=== PATIENT | male | born 1970 | race American Indian/Alaskan Native ===

== ENCOUNTER 2017-09-21 09:30 | Emergency (ER) | payer SELFPAY ==
--- NOTE | 2017-09-21 11:25 | Emergency Department Report ---
ED General Adult HPI - General Chief complaint: Rectal Pain Stated complaint: BLEDDING FROM RECTUM, AND COUGH Time Seen by Provider: 09/21/17 10:43 Source: patient Mode of arrival: Ambulatory Limitations: No Limitations - History of Present Illness Initial comments: Nonproductive cough intermittently, also associated and constipated for several days and was t trying to have a bowel movement when noticed bright red blood on the toilet paper times several days. No syncope no abdominal complaints no chest pain no heavy bleeding just small amounts of bright red blood. No black or bloody stool no family history of cancer and no previous history of this here for evaluation for a nonproductive cough for several days no chest pain no fever no weight loss history of high blood pressure was several days of bright red blood on the toilet paper after being constipated -: Gradual, days(s), unknown Radiation: non-radiation Severity scale (0 -10): 0 Associated Symptoms: denies other symptoms, other (no dizziness syncope). denies: confusion, chest pain, cough, diaphoresis, fever/chills, headaches, loss of appetite, malaise, nausea/vomiting, rash, seizure, syncope - Related Data Previous Rx's Medication Instructions Recorded Last Taken Type Dicyclomine [Bentyl] 20 mg PO QID PRN #15 tablet 09/21/17 Unknown Rx Metoclopramide [Reglan] 10 mg PO TID PRN #15 tab 09/21/17 Unknown Rx Allergies Allergy/AdvReac Type Severity Reaction Status Date / Time No Known Allergies Allergy Unverified 09/21/17 09:33 ED Review of Systems ROS: Stated complaint: BLEDDING FROM RECTUM, AND COUGH Other details as noted in HPI ED Past Medical Hx - Past Medical History Hx Hypertension: Yes - Surgical History Past Surgical History?: No - Social History Smoking Status: Never Smoker Substance Use Type: None - Medications Home Medications: Home Medications Medication Instructions Recorded Confirmed Last Taken Type Dicyclomine [Bentyl] 20 mg PO QID PRN #15 tablet 09/21/17 Unknown Rx Metoclopramide [Reglan] 10 mg PO TID PRN #15 tab 09/21/17 Unknown Rx ED Physical Exam - General Limitations: No Limitations General appearance: alert - Head Head exam: Present: atraumatic, normocephalic - Eye Eye exam: Present: normal appearance, PERRL, EOMI - ENT ENT exam: Present: normal exam, normal orophraynx - Neck Neck exam: Present: normal inspection. Absent: tenderness, meningismus - Respiratory Respiratory exam: Present: normal lung sounds bilaterally. Absent: respiratory distress, wheezes, rales, rhonchi, stridor, chest wall tenderness, accessory muscle use, decreased breath sounds, prolonged expiratory - Cardiovascular Cardiovascular Exam: Present: regular rate, normal rhythm, normal heart sounds, other (capillary refill and pulses equal bilaterally) - GI/Abdominal GI/Abdominal exam: Present: soft. Absent: distended, tenderness, guarding, rebound, rigid, mass, pulsatile mass - Rectal Rectal exam: Present: normal inspection, normal rectal tone, hemorrhoids, normal prostate. Absent: bloody stool, fecal impaction, mass, tenderness - Extremities Exam Extremities exam: Present: normal inspection, normal capillary refill - Back Exam Back exam: Present: normal inspection. Absent: CVA tenderness (R), CVA tenderness (L), muscle spasm, paraspinal tenderness, vertebral tenderness - Neurological Exam Neurological exam: Present: alert, oriented X3, CN II-XII intact. Absent: motor sensory deficit - Skin Skin exam: Present: warm ED Course Vital Signs 09/21/17 09/21/17 09/21/17 09:33 11:45 11:47 Temperature 98.7 F Pulse Rate 78 72 70 Respiratory 18 Rate Blood Pressure 150/73 145/72 146/70 O2 Sat by Pulse 97 97 97 Oximetry ED Medical Decision Making - Lab Data Result diagrams: 09/21/17 11:46 - Radiology Data Radiology results: report reviewed, image reviewed - Medical Decision Making Patient has a nonobstructive pattern on the x-ray he has nothing abnormal on his lung reyna, he did have trace heme positive brown stool, normal vital signs no acute abdomen at this time no active bleeding at this time no rectal masses appreciated normal H&H, x-ray did show some increase gas radiologist thought to be a mild ileus versus enteritis he is not having nausea vomiting he is stable for outpatient follow-up to see GI for further evaluation of bright red blood on the toilet paper, he has been somewhat gassy symptoms likely related to gastroenteritis issue and unable to use a stool for culture ovary placed on Reglan and bentyl to return if worse A she did verbalize understanding of need for outpatient follow-up given the differential including cancer and was aware that he will need outpatient follow-up Critical care attestation.: If time is entered above; I have spent that time in minutes in the direct care of this critically ill patient, excluding procedure time. ED Disposition Clinical Impression: Hematochezia, Gastroenteritis Disposition: TO HOME OR SELFCARE Is pt being admited?: No Condition: Stable Instructions: Gastroenteritis (ED), Rectal Bleeding (ED) Additional Instructions: See the doctor listed return immediately if no alarming symptoms such as worse bleeding or call 911 Prescriptions: Dicyclomine [Bentyl] 20 mg PO QID PRN #15 tablet PRN Reason: Colic Metoclopramide [Reglan] 10 mg PO TID PRN #15 tab PRN Reason: Pain, Moderate (4-6) Referrals: PRIMARY CARE, [Primary Care Provider] - 3-5 Days TOO LANDRY MD [Staff Physician] - 3-5 Days Time of Disposition: 13:31
[2017-09-21 12:09] LABS: Basophils % (Auto) 0.5 % (0.0-1.8); Eosinophils # (Auto) 0.1 K/mm3 (0.0-0.4); Hematocrit 38.7 % (35.5-45.6); Hemoglobin 13.7 gm/dl (11.8-15.2); Lymphocytes # (Auto) 2.1 K/mm3 (1.2-5.4); Lymphocytes % (Auto) 35.3 % (13.4-35.0); Mean Corpuscular HGB Conc 35 % (32-34); Mean Corpuscular Hemoglobin 33 pg (28-32); Mean Corpuscular Volume 93 fl (84-94); Monocytes # (Auto) 0.8 K/mm3 (0.0-0.8); Monocytes % (Auto) 13.6 % (0.0-7.3); Platelet Count 142 K/mm3 (140-440); Red Blood Count 4.14 M/mm3 (3.65-5.03); Red Cell Distribution Width 13.2 % (13.2-15.2)
--- NOTE | 2017-09-21 12:50 | XRay Report ---
FINAL REPORT EXAM: XR ABD SERIES W CXR 1V HISTORY: cough/ constipation TECHNIQUE: Abdomen and frontal chest views PRIORS: None. FINDINGS: There is no visible pulmonary consolidation, pleural effusion, or pneumothorax. Cardiac silhouette size is normal without vascular congestion. No visible acute displaced fracture in the regional skeleton.Small calcified granuloma lateral left mid lung. Pneumoperitoneum: None. Abnormal fluid levels: None. Visceromegaly: None visible. Mass: None visible. Abnormal calcification: None. Intestinal distention: None. Slight prominence of nonspecific gas in central small-bowel loops and left upper quadrant:. Intestinal obstructive pattern: None. Stool volume: Slight prominence in the ascending, transverse, and descending colon IMPRESSION: Scattered prominence of small and large bowel gas may reflect paralytic ileus and/or enteritis Prominent proximal colonic stool may reflect mild constipation
[2017-09-21 13:47] VITALS: BP 132/68
== END 2017-09-21 13:45 | disposition home or self-care (01) ==
LOC: ED 09:30
DX: K52.9 Noninfective gastroenteritis and colitis, unspecified (principal); K92.1 Melena; I10 Essential (primary) hypertension
CPT/HCPCS: 36415; 74022; 82271; 85025

== ENCOUNTER 2017-09-29 16:20 | Inpatient (IN) | payer OTHER ==
--- NOTE | 2017-09-29 19:14 | Emergency Department Report ---
ED Abdominal Pain HPI - General Chief Complaint: Medical Clearance Stated Complaint: CONSTIPATION Time Seen by Provider: 09/29/17 19:01 Source: patient Mode of arrival: Ambulatory Limitations: No Limitations - History of Present Illness Initial Comments: 47-year-old male past medical history hypertension presents with complaint of one week of constipation and vague abdominal discomfort and slight weakness. Patient is awake alert and oriented 3 denies chest pain shortness of breath fever chills nausea or vomiting. Denies dysuria or hematuria or increased urinary frequency. Denies any smoking or drug use. Patient is fully lucid. Accompanied by friends at bedside. States he was seen at another hospital in [place] for vague abdominal discomfort week ago. Patient states he has been told in the past that he has had a kidney issue but is unable to clarify exactly what MD Complaint: abdominal pain Onset/Timin -: week(s) Location: periumbilical Severity scale (0 -10): 0 Improves With: nothing Associated Symptoms: constipation (patient states he has felt constipated over the last several days) - Related Data Previous Rx's Medication Instructions Recorded Last Taken Type Dicyclomine [Bentyl] 20 mg PO QID PRN #15 tablet 09/21/17 Unknown Rx Metoclopramide [Reglan] 10 mg PO TID PRN #15 tab 09/21/17 Unknown Rx Allergies Allergy/AdvReac Type Severity Reaction Status Date / Time No Known Allergies Allergy Unverified 09/21/17 09:33 ED Review of Systems ROS: Stated complaint: CONSTIPATION Other details as noted in HPI Constitutional: denies: chills, fever Eyes: denies: eye pain, eye discharge, vision change ENT: denies: ear pain, throat pain Respiratory: denies: cough, shortness of breath, wheezing Cardiovascular: denies: chest pain, palpitations Endocrine: no symptoms reported Gastrointestinal: denies: abdominal pain, nausea, diarrhea Genitourinary: denies: urgency, dysuria Musculoskeletal: denies: back pain, joint swelling, arthralgia Skin: denies: rash, lesions Neurological: denies: headache, weakness, paresthesias Psychiatric: denies: anxiety, depression Hematological/Lymphatic: denies: easy bleeding, easy bruising ED Past Medical Hx - Past Medical History Previous Medical History?: Yes Hx Hypertension: Yes Additional medical history: heart murmure - Social History Smoking Status: Never Smoker - Medications Home Medications: Home Medications Medication Instructions Recorded Confirmed Last Taken Type Dicyclomine [Bentyl] 20 mg PO QID PRN #15 tablet 09/21/17 Unknown Rx Metoclopramide [Reglan] 10 mg PO TID PRN #15 tab 09/21/17 Unknown Rx ED Physical Exam - General Limitations: No Limitations General appearance: alert, in no apparent distress - Head Head exam: Present: atraumatic, normocephalic - Eye Eye exam: Present: normal appearance - ENT ENT exam: Present: mucous membranes moist - Neck Neck exam: Present: normal inspection - Respiratory Respiratory exam: Present: normal lung sounds bilaterally. Absent: respiratory distress - Cardiovascular Cardiovascular Exam: Present: regular rate, normal rhythm. Absent: systolic murmur, diastolic murmur, rubs, gallop - GI/Abdominal GI/Abdominal exam: Present: soft (abdomen is soft nontender nondistended 4 quadrants), normal bowel sounds - Rectal Rectal exam: Present: deferred - Extremities Exam Extremities exam: Present: normal inspection - Back Exam Back exam: Present: normal inspection - Neurological Exam Neurological exam: Present: alert, oriented X3 - Psychiatric Psychiatric exam: Present: normal affect, normal mood - Skin Skin exam: Present: warm, dry, intact, normal color. Absent: rash ED Course Vital Signs 09/29/17 09/29/17 09/29/17 16:45 20:44 22:02 Temperature 99.1 F 98.8 F Pulse Rate 77 75 Respiratory 16 18 16 Rate Blood Pressure 128/77 Blood Pressure 107/65 [Right] O2 Sat by Pulse 98 99 99 Oximetry ED Medical Decision Making - Lab Data Result diagrams: 09/29/17 19:26 09/29/17 19:26 - Medical Decision Making A/P: Elevated creatinine, acute kidney injury, constipation 1-unknown baseline creatinine. Creatinine is 2.2 with GFR 38 today. I discussed this with Dr. Joseph, patient to be admitted for HPI. IV fluid resuscitation. 2-CT shows possible mild distal sigmoid inflammation but no other abnormalities 3-lab work is otherwise unremarkable 4-discussed case with hospitalist for admission for elevated creatinine/RAMAKRISHNA. Critical care attestation.: If time is entered above; I have spent that time in minutes in the direct care of this critically ill patient, excluding procedure time. ED Disposition Clinical Impression: RAMAKRISHNA (acute kidney injury) Disposition: DC-09 OP ADMIT IP TO THIS HOSP Is pt being admited?: Yes Does the pt Need Aspirin: No Condition: Stable Referrals: PRIMARY CARE,MD [Primary Care Provider] - 3-5 Days
[2017-09-29 19:37] LABS: Basophils # (Auto) 0.1 K/mm3 (0.0-0.1); Basophils % (Auto) 0.7 % (0.0-1.8); Eosinophils # (Auto) 0.2 K/mm3 (0.0-0.4); Eosinophils % (Auto) 3.3 % (0.0-4.3); Hematocrit 39.5 % (35.5-45.6); Hemoglobin 13.7 gm/dl (11.8-15.2); Lymphocytes # (Auto) 2.2 K/mm3 (1.2-5.4); Lymphocytes % (Auto) 29.3 % (13.4-35.0); Mean Corpuscular HGB Conc 35 % (32-34); Mean Corpuscular Hemoglobin 33 pg (28-32); Mean Corpuscular Volume 94 fl (84-94); Monocytes # (Auto) 0.9 K/mm3 (0.0-0.8); Monocytes % (Auto) 12.2 % (0.0-7.3); Platelet Count 204 K/mm3 (140-440); Red Blood Count 4.21 M/mm3 (3.65-5.03); Red Cell Distribution Width 13.1 % (13.2-15.2)
[2017-09-29 19:45] LABS: Calcium 10.1 mg/dL (8.4-10.2)
[2017-09-29] MEDS ORDERED: NACL 0.9% 1000 ML 1,000 ML IV ONE ×2 (19:51→19:52)
[2017-09-29 19:59] LABS: Alanine Aminotransferase 17 units/L (7-56); Albumin 4.3 g/dL (3.9-5); Lipase 157 units/L (13-60)
[2017-09-29 20:10] LABS: Bilirubin,Direct < 0.2 mg/dL (0-0.2)
[2017-09-29 20:35] LABS: Bilirubin,Urine NEG (Negative); Blood,Urine MOD (Negative); Color,Urine Yellow (Yellow); Urobilinogen,Urine < 2.0 mg/dL (<2.0)
--- NOTE | 2017-09-29 22:04 | Cat Scan Report ---
FINAL REPORT PROCEDURE: CT abdomen and pelvis without contrast. TECHNIQUE: Computerized axial tomography of the abdomen and pelvis was performed without intravenous contrast. This study is performed without intravascular contrast material and its sensitivity for abdominal and pelvic pathology, including neoplasms, inflammation, abscess, free fluid, thrombosis, arterial dissection and infarction, is reduced compared with a contrast enhanced study. HISTORY: Abdominal pain. COMPARISON: No prior studies are available for comparison. FINDINGS: The lung bases are clear. There are no pleural effusions. The heart size is normal. The liver, pancreas and spleen are grossly normal. The gallbladder is present. There is no biliary dilatation. The adrenal glands are not enlarged. Both kidneys appear normal in size and configuration. The abdominal aorta has a normal caliber. There is no retroperitoneal adenopathy. There may be some mild infiltration of the fat adjacent to the rectum and distal sigmoid colon. This could indicate an inflammatory process. This is not a definite finding however. Clinical correlation is suggested. There are no signs of an abscess. There is no significant diverticular disease. A normal appendix is visible. The bladder, seminal vesicles and prostate appear normal. The regional skeleton appears intact. IMPRESSION: Question possible mild inflammation of the rectum and distal sigmoid colon. Clinical correlation recommended. Otherwise normal studies of the abdomen and pelvis.
[2017-09-29] MEDS ORDERED: TYLENOL PO PRN (22:35)
[2017-09-30] MEDS: NACL 0.9% 1000 ML 1,000 ML IV SCH ×3 (00:58→21:39)
[2017-09-30] MEDS ORDERED: ZOFRAN IV PRN (01:09)
[2017-09-30] MEDS ORDERED: DULCOLAX PR PRN (01:10)
[2017-09-30] MEDS: ROCEPHIN/NS 1 GM/50 ML 1 GM/50 ML BAG IV SCH ×2 (01:26→10:47)
--- NOTE | 2017-09-30 02:35 | History and Physical Report ---
CHIEF COMPLAINT: Constipation. OTHER COMPLAINT: Need for medical clearance and abdominal pain. HISTORY OF PRESENT ILLNESS: The patient is a 47-year-old male who was complaining of abdominal pain. He is constipated for some days and denied history of fever or chills. The patient denied history of nausea or vomiting, and also denied history of urinary symptoms and presented to the Emergency Room. There is no history of chest pain or shortness breath. PAST MEDICAL HISTORY: Pertinent for hypertension and heart murmur. Also, the patient has a history of questionable renal insufficiency. FAMILY HISTORY: Noncontributory. SOCIAL HISTORY: The patient does not smoke, does not drink, and does not use illicit drugs. MEDICATIONS: The patient is on Bentyl 20 mg by mouth 4 times daily and Reglan 10 mg by mouth 3 times daily. ALLERGIES: There are no known drug allergies. REVIEW OF SYSTEMS: CONSTITUTIONAL: There is no fever, no chills, no diaphoresis. HEENT: There is no headache or sore throat. CARDIOVASCULAR SYSTEM: There is no chest pain or orthopnea. RESPIRATORY SYSTEM: There is no shortness of breath or cough. GASTROINTESTINAL SYSTEM: Abdominal pain is present. Nausea is present, and constipation is present. NEUROLOGICAL SYSTEM: There is no numbness, no dizziness, no altered mental status. MUSCULOSKELETAL SYSTEM: There is no joint pain or swelling. DERMATOLOGICAL SYSTEM: There is no skin rash or itching. GENITOURINARY SYSTEM: There is no dysuria, hematuria, or flank pain. Rest of system review is normal. PHYSICAL EXAMINATION: GENERAL: At the time of exam, the patient was found to be alert, oriented x 3, and not in acute distress. VITAL SIGNS: Shows temperature of 99.4 degrees Fahrenheit, pulse of 74, respiration 20, blood pressure 152/67, O2 sat of 97% on room air. HEENT: Shows pupils to be equal, round, reactive to light and accommodation. Extraocular muscles are intact. NECK: Supple with no JVD or carotid bruit. CARDIOVASCULAR SYSTEM: Showed normal first and second heart sounds with no gallops or murmurs. RESPIRATORY SYSTEM: Show good air entry on both sides of the lungs with no abnormal breath sounds. GASTROINTESTINAL SYSTEM: Show abdomen to be full, soft, nontender with no organomegaly or rigidity. NEUROLOGIC: Shows no focal deficit. MUSCULOSKELETAL SYSTEM: Show no joint swelling or tenderness. DERMATOLOGIC SYSTEM: Show no skin rash. GENITOURINARY SYSTEM: Showing no costovertebral angle tenderness. PERTINENT LABORATORY AND IMAGING STUDIES: The patient has CBC done with normal white count, normal hemoglobin, and normal hematocrit, with CBC differential showing high monocyte count of 12.2, otherwise unremarkable. The patient's chemistry showed low potassium level of 3.4 and low chloride level of 95.2, with elevated BUN of 33, an elevated creatinine of 2.2. The patient's total creatinine kinase is high with a value of 407. Lipase level is within a value of 157. The patient's urinalysis was unremarkable. IMAGING STUDIES: The patient has CT of the abdomen and pelvis done that shows questionable possible mild inflammation of the rectum and distal sigmoid colon and the radiologist said to correlate clinically. DIAGNOSES: 1. Acute kidney injury. 2. Abdominal pain. 3. Questionable inflammation of the rectum and sigmoid colon. CARE OF PLAN: 1. The patient will be admitted to medical and surgical floor. 2. The patient will be on intravenous normal saline at 125 mL an hour. 3. The patient will be on intravenous Rocephin 1 g daily for treatment of possible inflammation in the rectum and sigmoid colon. 4. The patient will be on Tylenol 650 mg by mouth for fever and headache, will be on hydrochlorothiazide 12.5 mg 1 by mouth daily for blood pressure treatment and the patient remembers his home medications. 5. The patient will be on intravenous Zofran 4 mg every 6 hours as needed for nausea and vomiting. 6. The patient will have nephrology consult with Dr. Pereira in the morning for evaluation and treatment of acute kidney injury. 7. The patient will be on low sodium diet, and will have basic metabolic panel done this morning, 09/30/2017. 8. The patient will be on Dulcolax suppository one per rectum daily as needed for constipation. JOB# [id number] OCN/NTS MTDD
--- NOTE | 2017-09-30 09:40 | Consultation ---
History of Present Illness - Reason for Consult Consult date: 09/30/17 acute renal failure - History of Present Illness patient was admitted last night for worsening abdominal pain and constipation, CT scan showed possible inflammation of the distal sigmoid, blood work showed abnormal kidney function and renal consult was requested. patient remains to have constipation when seen, denies h/o CKD. Past History Past Medical History: hypertension Medications and Allergies Allergies Allergy/AdvReac Type Severity Reaction Status Date / Time No Known Allergies Allergy Unverified 09/21/17 09:33 Home Medications Medication Instructions Recorded Confirmed Last Taken Type Atenolol/Chlorthalidone 50 mg PO QDAY 09/30/17 09/30/17 1 Day Ago History ~09/29/17 50/25 Norvasc 10 mg PO QDAY MDD htn 09/30/17 09/30/17 1 Day Ago History ~09/29/17 10 Active Meds: Active Medications Acetaminophen (Tylenol) 650 mg PO Q4H PRN PRN Reason: Fever >101 Bisacodyl (Dulcolax) 10 mg [place] QDAY PRN PRN Reason: Constipation Sodium Chloride (Nacl 0.9% 1000 Ml) 1,000 mls @ 125 mls/hr IV DIRECT MAC Last Admin: 09/30/17 00:58 Dose: 125 mls/hr Ceftriaxone Sodium (Rocephin/Ns 1 Gm/50 Ml) 1 gm in 50 mls @ 100 mls/hr IV Q24HR MAC; Protocol Last Admin: 09/30/17 01:26 Dose: 100 mls/hr Ondansetron HCl (Zofran) 4 mg IV Q6H PRN PRN Reason: Nausea And Vomiting Review of Systems All systems: negative (constipation) Exam - Vital Signs Vital signs: Vital Signs Temp Pulse Resp BP Pulse Ox 99.1 F 77 16 128/77 98 09/29/17 16:45 09/29/17 16:45 09/29/17 16:45 09/29/17 16:45 09/29/17 16:45 - General Appearance General appearance: well-developed, well-nourished, appears stated age EENT: ATNC, PERRL, mucous membranes moist Neck: Present: neck supple Respiratory: Clear to Ascultation Heart: regular, S1S2 Gastrointestinal: Present: normoactive bowel sounds. Absent: tenderness, distended Integumentary: no rash, warm and dry Neurologic: no focal deficit, no asterixis, alert and oriented x3 Musculoskeletal: Present: other (no edema in BLE) Psychiatric: mood/affect appropriate, cooperative Results - Lab Results 09/29/17 19:26 09/30/17 07:52 Most recent lab results Calcium 9.0 mg/dL (8.4-10.2) 09/30/17 07:52 Assessment and Plan acute renal failure - possible prerenal azotemia from low PO intake and HCTZ - baseline Cr is unknown - Cr is improving with IVF - will d/c HCTZ - no hydronephrosis on CT abd/pelvis - will check urine lytes and protein Abdominal pain constipation - CT showed inflammation in distal sigmoid - started on rocephin HTN - d/c HCTZ as above - will adjust regiemn as needed Thank you for allowing to participate in Mr Garcia's care. Zach Duval MD cell [phone]
[2017-09-30] MEDS ORDERED: HCTZ PO SCH (10:00)
[2017-09-30] MEDS ORDERED: K-DUR PO ONE (10:48)
[2017-09-30] MEDS ORDERED: LEVAQUIN 750MG/150ML 750 MG/150 ML BAG IV SCH (11:00)
[2017-09-30 14:16] LABS: Creatinine,Urine 172.9 mg/dL (0.1-20.0); Protein/Creatinine Ratio,Urine 0.36
[2017-09-30 14:16] LABS: Creatinine,Urine 166.2 mg/dL (0.1-20.0)
--- NOTE | 2017-09-30 15:22 | Progress Note ---
Assessment and Plan /Abdominal pain likely due to colitis - CT showed inflammation in distal sigmoid - started on rocephin in the ER will change to levquin and flagyl - if no improvement considering consult GI /Elevated d/dimer - will order VQ scan, /RAMAKRISHNA - vasomotor nephropathy vs prerenal azotemia from low PO intake and HCTZ - Cr is improving with IVF - HCTZ stopped now - nephrology following, monitor renal function /Hypokalemia, will replace /HTN - started on metoprolol and norvasc - stopped HcTz /DVT Px, lovenox Brief History: 47 y/o male presented to ER worsening abdominal pain and constipation, CT scan showed possible inflammation of the distal sigmoid, serum chemistry showed elevated creatinine. Subjective Date of service: 09/30/17 Interval history: Pt seen and examined states abdominal pain improved Had BM yesterday Objective - Constitutional Vitals: Vital Signs - 12hr 09/30/17 06:21 Temperature 99.5 F Pulse Rate 76 Respiratory 18 Rate Blood Pressure 122/80 [Right] O2 Sat by Pulse 95 Oximetry General appearance: Present: no acute distress, well-nourished - EENT Eyes: PERRL, EOM intact ENT: hearing intact, clear oral mucosa Ears: bilateral: normal - Neck Neck: supple, normal ROM - Respiratory Respiratory effort: normal Respiratory: bilateral: CTA - Cardiovascular Rhythm: regular Heart Sounds: Present: S1 & S2. Absent: gallop, rub Extremities: pulses intact, No edema, normal color, Full ROM - Gastrointestinal General gastrointestinal: Present: soft, non-tender, non-distended, normal bowel sounds - Integumentary Integumentary: clear, warm, dry - Musculoskeletal Musculoskeletal: 1, strength equal bilaterally - Neurologic Neurologic: moves all extremities - Psychiatric Psychiatric: memory intact, appropriate mood/affect, intact judgment & insight - Labs CBC & Chem 7: 09/29/17 19:26 09/30/17 07:52 Labs: Abnormal lab results 09/29/17 09/29/17 09/29/17 Range/Units 19:26 19:26 19:26 MCH 33 H (28-32) pg MCHC 35 H (32-34) % RDW 13.1 L (13.2-15.2) % [place] % (Auto) 12.2 H (0.0-7.3) % [place] # 0.9 H (0.0-0.8) K/mm3 Potassium 3.4 L (3.6-5.0) mmol/L Chloride 95.2 L (98-107) mmol/L BUN 33 H (9-20) mg/dL Creatinine 2.2 H (0.8-1.5) mg/dL Glucose 106 H (75-100) mg/dL Total Creatine Kinase 407 H (55-170) units/L Lipase 157 H (13-60) units/L Urine Creatinine (0.1-20.0) mg/dL Urine Total Protein (5-11.8) mg/dL 09/30/17 09/30/17 09/30/17 Range/Units 07:52 13:00 13:30 MCH (28-32) pg MCHC (32-34) % RDW (13.2-15.2) % [place] % (Auto) (0.0-7.3) % [place] # (0.0-0.8) K/mm3 Potassium 3.1 L (3.6-5.0) mmol/L Chloride (98-107) mmol/L BUN 24 H (9-20) mg/dL Creatinine 1.7 H (0.8-1.5) mg/dL Glucose (75-100) mg/dL Total Creatine Kinase (55-170) units/L Lipase (13-60) units/L Urine Creatinine 172.9 H 166.2 H (0.1-20.0) mg/dL Urine Total Protein 63 H (5-11.8) mg/dL - Imaging and cardiology CT scan - abdomen: report reviewed
[2017-09-30] MEDS: FLAGYL 500 MG/100 ML 500 MG/100 ML BAG IV SCH (16:44)
[2017-09-30] MEDS: ASPIRIN PO SCH (19:09)
[2017-09-30] MEDS: NORVASC PO SCH (19:09)
[2017-09-30] MEDS ORDERED: LOPRESSOR PO SCH (19:15)
[2017-09-30] MEDS ORDERED: LOVENOX SUB-Q ONE ×2 (20:00→22:00)
[2017-09-30] MEDS ORDERED: LOVENOX SUB-Q SCH (22:00)
[2017-10-01] MEDS: FLAGYL 500 MG/100 ML 500 MG/100 ML BAG IV SCH ×4 (00:03→21:49)
[2017-10-01] MEDS: NACL 0.9% 1000 ML 1,000 ML IV SCH (06:00)
[2017-10-01 06:52] LABS: Basophils % (Auto) 0.5 % (0.0-1.8); Eosinophils # (Auto) 0.2 K/mm3 (0.0-0.4); Lymphocytes # (Auto) 1.6 K/mm3 (1.2-5.4); Lymphocytes % (Auto) 24.1 % (13.4-35.0); Mean Corpuscular HGB Conc 36 % (32-34); Mean Corpuscular Hemoglobin 33 pg (28-32); Mean Corpuscular Volume 92 fl (84-94); Monocytes # (Auto) 0.7 K/mm3 (0.0-0.8); Monocytes % (Auto) 10.3 % (0.0-7.3); Platelet Count 183 K/mm3 (140-440); Red Blood Count 4.14 M/mm3 (3.65-5.03)
[2017-10-01 07:03] LABS: Hematocrit 37.9 % (35.5-45.6); Hemoglobin 13.6 gm/dl (11.8-15.2)
[2017-10-01 08:11] LABS: BUN/Creatinine Ratio 11; Blood Urea Nitrogen 19 mg/dL (9-20); Calcium 8.9 mg/dL (8.4-10.2); Hemolysis Index 1
--- NOTE | 2017-10-01 08:47 | Progress Note ---
Assessment and Plan acute renal failure - possible prerenal azotemia from low PO intake and HCTZ - stable Cr since yesterday, baseline Cr is unknown, possible CKD from HTN - will decrease IVF to 50 cc/h - no hydronephrosis on CT abd/pelvis Abdominal pain - CT showed inflammation in distal sigmoid - started on rocephin, now on flagyl and levofloxacin HTN - d/c HCTZ as above - will decrease IVF as above and switch metoprolol to Labetalol 300 mg BID Thank you for allowing to participate in Mr Garcia's care. Zach Duval MD cell [phone] Subjective Date of service: 10/01/17 Principal diagnosis: acute renal failure Interval history: remains to have watery stool Objective - Vital Signs Vital signs: Vital Signs - 12hr 09/30/17 10/01/17 20:46 05:44 Temperature 98.5 F 99.5 F Pulse Rate 68 72 Respiratory 24 20 Rate Blood Pressure 136/61 145/61 O2 Sat by Pulse 94 98 Oximetry - General Appearance General appearance: well-developed, well-nourished, appears stated age EENT: ATNC, PERRL, mucous membranes moist Neck: no JVD, no carotid bruit Respiratory: Present: Clear to Ascultation. Absent: Rales, Ronchi Cardiology: regular, S1S2 Gastrointestinal: normoactive bowel sounds, no tenderness, no distended Integumentary: no rash, warm and dry Neurologic: no focal deficit, no asterixis, alert and oriented x3 Musculoskeletal: other (no edema in BLE) Psychiatric: mood/affect appropriate, cooperative - Lab 10/01/17 05:41 10/01/17 05:41 Most recent lab results Calcium 8.9 mg/dL (8.4-10.2) 10/01/17 05:41 Urine Creatinine 166.2 mg/dL (0.1-20.0) H 09/30/17 13:30 Urine Sodium 121 mmol/L 09/30/17 13:30 Urine Total Protein 63 mg/dL (5-11.8) H 09/30/17 13:00
[2017-10-01] MEDS: NORMODYNE PO SCH ×2 (10:33→21:52)
[2017-10-01] MEDS: ASPIRIN PO SCH (10:34)
[2017-10-01] MEDS: NORVASC PO SCH (10:34)
--- NOTE | 2017-10-01 11:39 | Nuclear Medicine Report ---
LUNG SCAN, VENTILATION AND PERFUSION: History: Elevated d-dimer, shortness of breath, chest pain. Technique: 5mci of Tc99m MAA was infused for the perfusion images. 15mci XE 133 gas was inhaled for the ventilatory images. No radiographic comparison is provided. Findings: This examination is just presented to me for interpretation. Inhalation of Xenon gas demonstrates a normal distribution of the activity throughout both lungs. The wash out phases show no focal retention of activity. After injection of Technetium 99m macroaggregated albumin gamma camera imaging of the lungs in multiple projections demonstrates normal pulmonary contours with a homogeneous distribution of activity. No focal areas of perfusion deficiency are identified. IMPRESSION: Low probability for pulmonary embolus.
[2017-10-01] MEDS: LEVAQUIN 750MG/150ML 750 MG/150 ML BAG IV SCH (16:33)
--- NOTE | 2017-10-01 20:29 | Progress Note ---
Assessment and Plan - RAMAKRISHNA due to ATN IV hydration recheck Cr - Colitis iv antibiotic - HTN Controlled on oral antihypertensives - Hypokalemia corrected - Elevated D-dimer with low probability VQ scan Subjective Date of service: 10/01/17 Principal diagnosis: acute renal failure Interval history: c/o no chest pain Shortness of breath or pND Objective - Constitutional Vitals: Vital Signs - 12hr 10/01/17 10/01/17 10/01/17 10:25 10:33 10:34 Temperature 99.1 F Pulse Rate 72 Respiratory 18 Rate Blood Pressure 131/63 131/63 131/63 O2 Sat by Pulse 94 Oximetry 10/01/17 10/01/17 13:48 17:09 Temperature 98.3 F 98.8 F Pulse Rate 76 82 Respiratory 20 16 Rate Blood Pressure 112/49 143/64 O2 Sat by Pulse 95 96 Oximetry General appearance: Present: no acute distress, well-nourished - EENT Eyes: PERRL, EOM intact Ears: bilateral: normal - Neck Neck: supple, normal ROM - Respiratory Respiratory effort: normal Respiratory: bilateral: CTA - Cardiovascular Rhythm: regular Heart Sounds: Present: S1 & S2. Absent: gallop, rub Extremities: pulses intact, No edema, normal color, Full ROM - Gastrointestinal General gastrointestinal: Present: soft, non-tender, non-distended, normal bowel sounds - Integumentary Integumentary: clear, warm, dry - Musculoskeletal Musculoskeletal: 1, strength equal bilaterally - Neurologic Neurologic: moves all extremities - Psychiatric Psychiatric: memory intact, appropriate mood/affect, intact judgment & insight - Labs CBC & Chem 7: 10/01/17 05:41 10/01/17 05:41 Labs: Abnormal lab results 09/30/17 10/01/17 10/01/17 Range/Units 19:48 05:41 05:41 MCH 33 H (28-32) pg MCHC 36 H (32-34) % RDW 13.0 L (13.2-15.2) % [place] % (Auto) 10.3 H (0.0-7.3) % D-Dimer 361.55 H (0-234) ng/mlDDU Potassium 3.2 L (3.6-5.0) mmol/L Creatinine 1.7 H (0.8-1.5) mg/dL
[2017-10-02 06:31] LABS: Basophils % (Auto) 0.4 % (0.0-1.8); Eosinophils # (Auto) 0.1 K/mm3 (0.0-0.4); Hematocrit 32.7 % (35.5-45.6); Hemoglobin 11.7 gm/dl (11.8-15.2); Lymphocytes # (Auto) 1.6 K/mm3 (1.2-5.4); Lymphocytes % (Auto) 29.3 % (13.4-35.0); Mean Corpuscular HGB Conc 36 % (32-34); Mean Corpuscular Hemoglobin 33 pg (28-32); Mean Corpuscular Volume 91 fl (84-94); Monocytes # (Auto) 0.6 K/mm3 (0.0-0.8); Monocytes % (Auto) 11.2 % (0.0-7.3); Platelet Count 175 K/mm3 (140-440); Red Blood Count 3.61 M/mm3 (3.65-5.03); Red Cell Distribution Width 12.9 % (13.2-15.2)
[2017-10-02 07:41] LABS: Calcium 8.6 mg/dL (8.4-10.2)
[2017-10-02] MEDS: FLAGYL 500 MG/100 ML 500 MG/100 ML BAG IV SCH ×3 (07:56→22:37)
--- NOTE | 2017-10-02 08:03 | Progress Note ---
Assessment and Plan - RAMAKRISHNA due to ATN IV hydration recheck Cr - Colitis iv antibiotic - HTN Controlled on oral antihypertensives - Hypokalemia corrected. Check magnesium level - Elevated D-dimer with low probability VQ scan - Prophylaxis with SCDs Subjective Date of service: 10/02/17 Principal diagnosis: acute renal failure Interval history: c/o no chest pain Shortness of breath or PND Objective - Exam Narrative Exam: Constitutional: Well-nourished well-developed. In no distress Head: Normocephalic atraumatic Eyes: Pupils are equal round and reactive to light Nose: No enlarged turbinates, no septal deviation. Mouth: Moist mucous membranes. Neck: Supple no thyromegaly. No bruit. No JVD Heart: Regular rate and rhythm, S1-S2 abnormal. No rubs murmurs or gallop Lungs: Clear to auscultation bilaterally no rales or rhonchi Abdomen: Soft, nontender. Bowel sound are present. Extremities: No edema no cyanosis and no clubbing. Neuro: Alert oriented Oriented x3. No focal sensory or motor deficit. Skin: No rashes no hyperemic spots Psychiatry: Euthymic. Calm. - Constitutional Vitals: Vital Signs - 12hr 10/01/17 10/01/17 10/01/17 21:02 21:52 22:00 Temperature 99.9 F H Pulse Rate 83 83 Respiratory 28 H 20 Rate Blood Pressure 131/61 131/71 O2 Sat by Pulse 97 Oximetry 10/01/17 10/02/17 23:36 05:58 Temperature 99.6 F 98.6 F Pulse Rate 75 76 Respiratory 16 16 Rate Blood Pressure 127/54 131/58 O2 Sat by Pulse 97 97 Oximetry General appearance: Present: no acute distress, well-nourished - EENT Eyes: PERRL, EOM intact ENT: hearing intact, clear oral mucosa Ears: bilateral: normal - Neck Neck: supple, normal ROM - Respiratory Respiratory effort: normal Respiratory: bilateral: CTA - Breasts Breasts: normal - Cardiovascular Rhythm: regular Heart Sounds: Present: S1 & S2. Absent: gallop, rub Extremities: pulses intact, No edema, normal color, Full ROM - Gastrointestinal General gastrointestinal: Present: soft, non-tender, non-distended, normal bowel sounds - Genitourinary Male genitourinary: normal - Integumentary Integumentary: clear, warm, dry - Musculoskeletal Musculoskeletal: 1, strength equal bilaterally - Neurologic Neurologic: moves all extremities - Psychiatric Psychiatric: memory intact, appropriate mood/affect, intact judgment & insight - Labs CBC & Chem 7: 10/02/17 04:56 10/02/17 04:56 Labs: Abnormal lab results 10/01/17 10/02/17 10/02/17 Range/Units 05:41 04:56 04:56 RBC 3.61 L (3.65-5.03) M/mm3 Hgb 11.7 L (11.8-15.2) gm/dl Hct 32.7 L (35.5-45.6) % MCH 33 H (28-32) pg MCHC 36 H (32-34) % RDW 12.9 L (13.2-15.2) % [place] % (Auto) 11.2 H (0.0-7.3) % Potassium 3.2 L 2.8 L* (3.6-5.0) mmol/L Creatinine 1.7 H 1.7 H (0.8-1.5) mg/dL
[2017-10-02] MEDS: KCL 10MEQ/100ML 10 MEQ/100 ML BAG IV SCH ×4 (09:46→18:57)
[2017-10-02] MEDS: NORVASC PO SCH (09:48)
[2017-10-02] MEDS: THALITONE PO SCH (09:49)
[2017-10-02] MEDS: ASPIRIN PO SCH (09:49)
[2017-10-02] MEDS: LEVAQUIN 750MG/150ML 750 MG/150 ML BAG IV SCH (09:50)
[2017-10-02] MEDS: TENORMIN PO SCH (09:50)
[2017-10-02] MEDS ORDERED: ATENOLOL PO SCH (10:00)
[2017-10-02] MEDS ORDERED: NON-FORMULARY (Norvasc 10 MG) PO SCH (10:00)
[2017-10-02] MEDS ORDERED: CHLORTHALIDONE PO SCH (10:00)
--- NOTE | 2017-10-02 12:18 | Progress Note ---
Assessment and Plan Acute Renal Failure possibly Prerenal Azotemia from HCTZ on CKD from Hypertension - Renal function reviewed. Serum creatinine stable at 1.7 today. Baseline serum creatinine unknown. - On IVF of 50 ml/hr - No hydronephrosis on CT abd/pelvis - Renally dose medications - Obtain daily weights - Monitor I/O's - Continue monitor renal function closely Hypokalemia: -In repletion with IV KCL 10 meq x 4 doses -BMP in a.m Abdominal pain - CT showed inflammation in distal sigmoid - On IV Rocephin/ Flagyl and Levofloxacin HTN -On Amlodipine 10 mg po daily, Chlorthalidone 25 mg daily and Atenolol 50 mg daily -Monitor blood pressures and adjust regimen as needed Subjective Date of service: 10/02/17 Principal diagnosis: acute renal failure Interval history: Patient seen sitting up in bed. Reviewed renal labs with patient. No family at bedside. Objective - Vital Signs Vital signs: Vital Signs - 12hr 10/02/17 10/02/17 10/02/17 05:58 09:48 09:50 Temperature 98.6 F Pulse Rate 76 76 76 Respiratory 16 Rate Blood Pressure 131/58 O2 Sat by Pulse 97 Oximetry 10/02/17 11:52 Temperature 98.8 F Pulse Rate 76 Respiratory 20 Rate Blood Pressure 132/63 O2 Sat by Pulse 95 Oximetry - General Appearance General appearance: well-developed, appears stated age EENT: ATNC, PERRL, hearing intact, vision intact Neck: no JVD, supple Respiratory: Present: Decreased Breath Sounds Cardiology: regular, S1S2 Gastrointestinal: normoactive bowel sounds Integumentary: warm and dry Neurologic: alert and oriented x3 Musculoskeletal: other (No edema) - Lab 10/02/17 04:56 10/02/17 04:56 Most recent lab results Calcium 8.6 mg/dL (8.4-10.2) 10/02/17 04:56 Urine Creatinine 166.2 mg/dL (0.1-20.0) H 09/30/17 13:30 Urine Sodium 121 mmol/L 09/30/17 13:30 Urine Total Protein 63 mg/dL (5-11.8) H 09/30/17 13:00
[2017-10-03 06:51] LABS: Basophils % (Auto) 0.5 % (0.0-1.8); Eosinophils # (Auto) 0.2 K/mm3 (0.0-0.4); Eosinophils % (Auto) 2.9 % (0.0-4.3); Hematocrit 35.4 % (35.5-45.6); Hemoglobin 12.3 gm/dl (11.8-15.2); Lymphocytes # (Auto) 1.5 K/mm3 (1.2-5.4); Lymphocytes % (Auto) 27.7 % (13.4-35.0); Mean Corpuscular HGB Conc 35 % (32-34); Mean Corpuscular Hemoglobin 32 pg (28-32); Mean Corpuscular Volume 92 fl (84-94); Monocytes # (Auto) 0.6 K/mm3 (0.0-0.8); Platelet Count 187 K/mm3 (140-440); Red Blood Count 3.85 M/mm3 (3.65-5.03); Red Cell Distribution Width 12.8 % (13.2-15.2)
[2017-10-03 07:04] LABS: Calcium 8.7 mg/dL (8.4-10.2)
[2017-10-03] MEDS: FLAGYL PO SCH ×2 (08:31→15:00)
[2017-10-03] MEDS: TENORMIN PO SCH (09:13)
[2017-10-03] MEDS: ASPIRIN PO SCH (09:14)
[2017-10-03] MEDS: THALITONE PO SCH ×2 (09:14→11:00)
[2017-10-03] MEDS: NORVASC PO SCH (09:14)
[2017-10-03] MEDS ORDERED: LEVAQUIN PO SCH (10:00)
--- NOTE | 2017-10-03 10:12 | Progress Note ---
Assessment and Plan Acute Renal Failure possibly prerenal Azotemia from HCTZ on CKD from Hypertension: - Renal function reviewed, SCr level was 1.6 today, yesterday's SCr level was 1.7 - Exact SCr baseline unknown - Continue on 0.9% NS infusion at gentle rate of 50 ml/hr - Hold chlorthalidone for now, no signs of volume overload/pt denies shortness of breath - CT Abd/Pelvis - no hydronephrosis - Renally dose medications - Obtain daily weights - Cote Catheter: No - Renal plan d/w Dr Yost - Continue supportive therapy Hypokalemia: - Replete - Magnesium level stable today Abdominal pain: Constipation: - CT showed inflammation in distal sigmoid - On rocephin, Flagyl, and levofloxacin - Pt reports unable to have bowel movement, states he had very small bowel movement with streaks of bright red blood noted - consider GI consult Essential Hypertension: -On Amlodipine 10 mg orally once a day and Atenolol 50 mg daily -Adjust medications as needed Subjective Date of service: 10/03/17 Principal diagnosis: acute renal failure Interval history: Pt reports he still has constipation with intermittent bright red blood noted. Pt denies shortness of breath, states tolerating diet ok overall, no nausea or vomiting. No family at bedside Objective - Vital Signs Vital signs: Vital Signs - 12hr 10/02/17 10/03/17 22:36 05:18 Temperature 97.3 F L 97.8 F Pulse Rate 82 80 Respiratory 24 16 Rate Blood Pressure 162/72 125/53 O2 Sat by Pulse 97 96 Oximetry - General Appearance General appearance: well-developed (no acute distress) EENT: ATNC Neck: no JVD Respiratory: Present: Clear to Ascultation Cardiology: regular, S1S2 Gastrointestinal: normoactive bowel sounds, no tenderness Integumentary: warm and dry Neurologic: alert and oriented x3 Musculoskeletal: other (no edema to both lower extremities) Psychiatric: mood/affect appropriate, cooperative - Lab 10/03/17 05:54 10/03/17 05:54 Most recent lab results Calcium 8.7 mg/dL (8.4-10.2) 10/03/17 05:54 Phosphorus 2.60 mg/dL (2.5-4.5) 10/03/17 05:54 Magnesium 1.90 mg/dL (1.7-2.3) 10/03/17 05:54 Urine Creatinine 166.2 mg/dL (0.1-20.0) H 09/30/17 13:30 Urine Sodium 121 mmol/L 09/30/17 13:30 Urine Total Protein 63 mg/dL (5-11.8) H 09/30/17 13:00
[2017-10-03] MEDS ORDERED: K-DUR PO ONE ×2 (10:22→12:46)
--- NOTE | 2017-10-03 10:29 | Progress Note ---
Assessment and Plan - RAMAKRISHNA due to ATN IV hydration monitor Cr - Colitis Presently on IV antibiotics - HTN Controlled on oral antihypertensives - Hypokalemia improving, will replete - Elevated D-dimer with low probability VQ scan -DVT Prophylaxis with SCDs Subjective Date of service: 10/03/17 Principal diagnosis: acute renal failure Objective - Constitutional Vitals: Vital Signs - 12hr 10/02/17 10/03/17 22:36 05:18 Temperature 97.3 F L 97.8 F Pulse Rate 82 80 Respiratory 24 16 Rate Blood Pressure 162/72 125/53 O2 Sat by Pulse 97 96 Oximetry General appearance: Present: no acute distress, well-nourished - EENT Eyes: PERRL, EOM intact ENT: hearing intact, clear oral mucosa Ears: bilateral: normal - Neck Neck: supple, normal ROM - Respiratory Respiratory effort: normal Respiratory: bilateral: CTA - Breasts Breasts: deferred - Cardiovascular Rhythm: regular Heart Sounds: Present: S1 & S2. Absent: gallop, rub Extremities: pulses intact, No edema, normal color, Full ROM - Gastrointestinal General gastrointestinal: Present: soft, non-tender, non-distended, normal bowel sounds Rectal Exam: deferred - Genitourinary Male genitourinary: deferred - Integumentary Integumentary: clear, warm, dry - Musculoskeletal Musculoskeletal: strength equal bilaterally - Neurologic Neurologic: moves all extremities - Labs CBC & Chem 7: 10/03/17 05:54 10/03/17 05:54 Labs: Abnormal lab results 10/03/17 10/03/17 Range/Units 05:54 05:54 Hct 35.4 L (35.5-45.6) % MCHC 35 H (32-34) % RDW 12.8 L (13.2-15.2) % [place] % (Auto) 12.0 H (0.0-7.3) % Potassium 3.4 L D (3.6-5.0) mmol/L Creatinine 1.6 H (0.8-1.5) mg/dL
--- NOTE | 2017-10-03 13:08 | Discharge Summary ---
Providers - Providers Date of Admission: 09/29/17 22:27 Date of discharge: 10/03/17 Attending physician: TILA DUFFY 09/30/17 06:31 Consult to Physician [CONS] Routine Comment: Consulting Provider: AUGIE BERRY Physician Instructions: Reason For Exam: RAMAKRISHNA Primary care physician: [facility]IL[facility] Hospitalization Condition: Stable Hospital course: 47-year-old male past medical history hypertension presents with complaint of one week of constipation and vague abdominal discomfort and slight weakness. Patient is awake alert and oriented 3 denies chest pain shortness of breath fever chills nausea or vomiting. Denies dysuria or hematuria or increased urinary frequency. Denies any smoking or drug use. Patient is fully lucid. Accompanied by friends at bedside. States he was seen at another hospital in [place] for vague abdominal discomfort week ago. Patient states he has been told in the past that he has had a kidney issue but is unable to clarify exactly what Disposition: DC-01 TO HOME OR SELFCARE Core Measure Documentation - Palliative Care Palliative Care/ Comfort Measures: Not Applicable - Core Measures Any of the following diagnoses?: none Exam - Physical Exam Narrative exam: Constitutional: Well-nourished well-developed. In no distress Head: Normocephalic atraumatic Eyes: Pupils are equal round and reactive to light Nose: No enlarged turbinates, no septal deviation. Mouth: Moist mucous membranes. Neck: Supple no thyromegaly. No bruit. No JVD Heart: Regular rate and rhythm, S1-S2 abnormal. No rubs murmurs or gallop Lungs: Clear to auscultation bilaterally no rales or rhonchi Abdomen: Soft, nontender. Bowel sound are present. Extremities: No edema no cyanosis and no clubbing. Neuro: Alert oriented Oriented x3. No focal sensory or motor deficit. Skin: No rashes no hyperemic spots Psychiatry: Euthymic. Calm. - Constitutional Vitals: Temp Pulse Resp BP Pulse Ox 97.8 F 80 16 125/53 96 10/03/17 05:18 10/03/17 05:18 10/03/17 05:18 10/03/17 05:18 10/03/17 05:18 Plan Activity: advance as tolerated Diet: regular Follow up with: WADE TATE MD [Primary Care Provider] - 3-5 Days PANCHO VIERA MD [Staff Physician] - 7 Days Prescriptions: Atenolol [Tenormin] 50 mg PO QDAY #30 tablet AtorvaSTATin [Lipitor] 40 mg PO QHS #30 tablet Norvasc 10 mg PO QDAY #30 MDD htn
[2017-10-03] MEDS ORDERED: MIRALAX 3350 PO SCH (16:00)
[2017-10-03 17:47] VITALS: BP 137/65
== END 2017-10-03 18:40 | disposition home or self-care (01) | DRG 391 ==
LOC: ED 16:20 → 3A 22:27
PROVIDERS: ADMIT Internal Medicine; ATTEND Family Medicine
DX: K52.9 Noninfective gastroenteritis and colitis, unspecified (principal); N17.0 Acute kidney failure with tubular necrosis; K59.00 Constipation, unspecified; E87.6 Hypokalemia; N18.9 Chronic kidney disease, unspecified; I12.9 Hypertensive chronic kidney disease with stage 1 through stage 4 chronic kidney disease, or unspecified chronic kidney disease; Z79.899 Other long term (current) drug therapy
CPT/HCPCS: 36415; 74176; 78582; 80048; 80074; 81001; 82140; 82550; 82570; 83690; 83735; 84100; 84156; 84300; 84484; 85025; 85379; 87040; 93005; 93010; 96360; A9270-GY; A9540; A9558; J0696; J1650; J1956; J3480; J7030

== ENCOUNTER 2017-10-31 05:30 | Emergency (ER) | payer SELFPAY ==
[2017-10-31 07:01] LABS: Basophils % (Auto) 0.4 % (0.0-1.8); Eosinophils # (Auto) 0.1 K/mm3 (0.0-0.4); Eosinophils % (Auto) 1.1 % (0.0-4.3); Hematocrit 36.2 % (35.5-45.6); Hemoglobin 12.5 gm/dl (11.8-15.2); Lymphocytes # (Auto) 2.6 K/mm3 (1.2-5.4); Mean Corpuscular HGB Conc 35 % (32-34); Mean Corpuscular Hemoglobin 31 pg (28-32); Mean Corpuscular Volume 90 fl (84-94); Monocytes # (Auto) 1.2 K/mm3 (0.0-0.8); Monocytes % (Auto) 12.1 % (0.0-7.3); Platelet Count 177 K/mm3 (140-440); Red Cell Distribution Width 13.2 % (13.2-15.2)
[2017-10-31 07:27] LABS: Bacteria,Urine 1+ /HPF (Negative); Bilirubin,Urine NEG (Negative); Blood,Urine LG (Negative); Color,Urine Yellow (Yellow); Granular Casts,Urine 1 /LPF; Mucus,Urine FEW /HPF; Urobilinogen,Urine < 2.0 mg/dL (<2.0)
[2017-10-31 07:33] LABS: Albumin 3.7 g/dL (3.9-5)
[2017-10-31 07:34] LABS: Protein,Urine >500 mg/dL (Negative)
--- NOTE | 2017-10-31 08:14 | Cat Scan Report ---
CT ABDOMEN PELVIS WITHOUT CONTRAST: HISTORY: abdominal pain. COMPARISON: 09/29/17. TECHNIQUE: Helical CT in 1.25mm intervals without IV contrast. Sagittal and coronal reconstructions. FINDINGS: Lung bases: Normal. Liver: Normal. Biliary system: Normal. Pancreas: Normal. Spleen: Normal. Kidneys/ureters/bladder: Normal. Adrenal glands: Normal. Aorta: Normal. Intestines: No oral or IV contrast was administered which limits this exam. There appears to be increased circumferential thickening of the distal rectosigmoid colon and rectum on today's exam. It is unclear if this represents an inflammatory process or a neoplastic process. The remainder of the GI system is unremarkable. Appendix: Normal. Ascites: There is small fluid in the retroperitoneum. No peritoneal ascites is identified. Adenopathy: There are multiple borderline to mildly enlarged lymph nodes in the retroperitoneum and perirectal areas. One of the largest lymph nodes measure 1.6 cm in greatest dimension in the left para-aortic chain. Musculoskeletal: Normal. IMPRESSION: Increased thickening of the distal colon and rectum since 09/29/17 exam. Relatively stable appearance of the retroperitoneal and perirectal lymph nodes. Although a nonspecific inflammatory process of the rectum could be considered, a neoplastic process cannot be excluded. Please correlate with the patient's clinical presentation and history.
[2017-10-31 09:30] VITALS: BP 135/66
--- NOTE | 2017-10-31 11:54 | Emergency Department Report ---
ED General Adult HPI - General Chief complaint: Abdominal Pain Stated complaint: CONSTIPATION/BLOODY STOOL Time Seen by Provider: 10/31/17 11:29 Source: patient, EMS Mode of arrival: Ambulatory Limitations: No Limitations - History of Present Illness Initial comments: Patient complains of diffuse abdominal pain that has been present for the last 3 months along with constipation. Patient also states that he has a lot of pain on defecation at the rectal area along with blood in the stool. Patient states that he did take some magnesium citrate about 4 days ago and had a significant bowel movement. Patient has no other complaints. -: Gradual Location: abdomen Radiation: non-radiation Severity scale (0 -10): 5 Quality: dull Consistency: constant Improves with: none Worsens with: none Associated Symptoms: denies other symptoms Treatments Prior to Arrival: none - Related Data Previous Rx's Medication Instructions Recorded Last Taken Type Atenolol [Tenormin] 50 mg PO QDAY #30 tablet 10/03/17 Unknown Rx AtorvaSTATin [Lipitor] 40 mg PO QHS #30 tablet 10/03/17 Unknown Rx Norvasc 10 mg PO QDAY #30 MDD htn 10/03/17 Unknown Rx Amoxicillin/Potassium Clav 1 each PO BID 14 Days tablet 10/31/17 Unknown Rx [Augmentin 875-125 Tablet] traMADol [Ultram] 50 mg PO Q6HR PRN #20 tablet 10/31/17 Unknown Rx Allergies Allergy/AdvReac Type Severity Reaction Status Date / Time Chocolate Allergy Unknown Unknown Uncoded 09/30/17 15:09 ED Review of Systems ROS: Stated complaint: CONSTIPATION/BLOODY STOOL Other details as noted in HPI Constitutional: denies: chills, fever Eyes: denies: eye pain, eye discharge, vision change ENT: denies: ear pain, throat pain Respiratory: denies: cough, shortness of breath, wheezing Cardiovascular: denies: chest pain, palpitations Endocrine: no symptoms reported Gastrointestinal: abdominal pain. denies: nausea, diarrhea Genitourinary: denies: urgency, dysuria Musculoskeletal: denies: back pain, joint swelling, arthralgia Skin: denies: rash, lesions Neurological: denies: headache, weakness, paresthesias Psychiatric: denies: anxiety, depression Hematological/Lymphatic: denies: easy bleeding, easy bruising ED Past Medical Hx - Past Medical History Previous Medical History?: Yes Hx Hypertension: Yes Hx Congestive Heart Failure: No Hx Diabetes: No Hx Sickle Cell Disease: No Hx Asthma: No Hx COPD: No Hx HIV: No Additional medical history: heart murmure - Surgical History Past Surgical History?: No - Social History Smoking Status: Former Smoker Substance Use Type: None - Medications Home Medications: Home Medications Medication Instructions Recorded Confirmed Last Taken Type Atenolol [Tenormin] 50 mg PO QDAY #30 tablet 10/03/17 Unknown Rx AtorvaSTATin [Lipitor] 40 mg PO QHS #30 tablet 10/03/17 Unknown Rx Norvasc 10 mg PO QDAY #30 MDD htn 10/03/17 Unknown Rx Amoxicillin/Potassium Clav 1 each PO BID 14 Days tablet 10/31/17 Unknown Rx [Augmentin 875-125 Tablet] traMADol [Ultram] 50 mg PO Q6HR PRN #20 tablet 10/31/17 Unknown Rx ED Physical Exam - General Limitations: No Limitations General appearance: alert, in no apparent distress - Head Head exam: Present: atraumatic, normocephalic - Eye Eye exam: Present: normal appearance - ENT ENT exam: Present: mucous membranes moist - Neck Neck exam: Present: normal inspection - Respiratory Respiratory exam: Present: normal lung sounds bilaterally. Absent: respiratory distress, wheezes, rales - Cardiovascular Cardiovascular Exam: Present: regular rate, normal rhythm. Absent: systolic murmur, diastolic murmur, rubs, gallop - GI/Abdominal GI/Abdominal exam: Present: soft, normal bowel sounds. Absent: distended, tenderness - Rectal Rectal exam: Present: deferred - Extremities Exam Extremities exam: Present: normal inspection - Back Exam Back exam: Present: normal inspection - Neurological Exam Neurological exam: Present: alert, oriented X3, CN II-XII intact. Absent: motor sensory deficit - Psychiatric Psychiatric exam: Present: normal affect, normal mood - Skin Skin exam: Present: warm, dry, intact, normal color. Absent: rash ED Course Vital Signs 10/31/17 10/31/17 05:47 09:17 Temperature 99.8 F H 98.9 F Pulse Rate 81 84 Respiratory 20 18 Rate Blood Pressure 153/71 135/66 O2 Sat by Pulse 99 97 Oximetry ED Medical Decision Making - Lab Data Result diagrams: 10/31/17 06:45 10/31/17 06:45 - Medical Decision Making Discussed CT results with patient MR concern for either a neoplasm or infection or autoimmune disease. Discussed with patient the need to follow up with her GI Drs. outpatient and at this point patient tells me he does not have insurance. I informed the patient that we will be giving him free clinics to follow-up with. Critical care attestation.: If time is entered above; I have spent that time in minutes in the direct care of this critically ill patient, excluding procedure time. ED Disposition Clinical Impression: Abdominal pain, Colitis Disposition: TO HOME OR SELFCARE Is pt being admited?: No Does the pt Need Aspirin: No Condition: Stable Instructions: Abdominal Pain (ED) Additional Instructions: return if worse Prescriptions: Amoxicillin/Potassium Clav [Augmentin 875-125 Tablet] 1 each PO BID 14 Days tablet traMADol [Ultram] 50 mg PO Q6HR PRN #20 tablet PRN Reason: Pain Referrals: PRIMARY CARE, [Primary Care Provider] - 3-5 Days Time of Disposition: 11:52
== END 2017-10-31 12:05 | disposition home or self-care (01) ==
LOC: ED 05:30
DX: K52.9 Noninfective gastroenteritis and colitis, unspecified (principal); Z91.09 Other allergy status, other than to drugs and biological substances
CPT/HCPCS: 36415; 74176; 80053; 81001; 85025

== ENCOUNTER 2017-12-28 06:21 | Emergency (ER) | payer SELFPAY ==
[2017-12-28 09:41] LABS: Basophils % (Auto) 0.6 % (0.0-1.8); Eosinophils # (Auto) 0.1 K/mm3 (0.0-0.4); Eosinophils % (Auto) 2.2 % (0.0-4.3); Hematocrit 37.2 % (35.5-45.6); Hemoglobin 12.4 gm/dl (11.8-15.2); Lymphocytes # (Auto) 1.5 K/mm3 (1.2-5.4); Lymphocytes % (Auto) 30.9 % (13.4-35.0); Mean Corpuscular HGB Conc 33 % (32-34); Mean Corpuscular Hemoglobin 29 pg (28-32); Mean Corpuscular Volume 87 fl (84-94); Monocytes # (Auto) 0.5 K/mm3 (0.0-0.8); Monocytes % (Auto) 9.9 % (0.0-7.3); Platelet Count 152 K/mm3 (140-440); Red Blood Count 4.26 M/mm3 (3.65-5.03); Red Cell Distribution Width 15.6 % (13.2-15.2)
--- NOTE | 2017-12-28 09:48 | Cat Scan Report ---
FINAL REPORT EXAM: CT HEAD/BRAIN WO CON HISTORY: dizzy near syncope TECHNIQUE: CT of the Head without IV contrast. PRIORS: None currently available. FINDINGS: There is no evidence for acute ischemia. There is no hemorrhage. There is no midline shift. There is no hydrocephalus. There is no mass. Age appropriate de la garza-white matter attenuation is noted. There is no calvarial fracture. The temporal bones demonstrate aerated mastoid air cells. The middle ears appear unremarkable. Paranasal sinuses are unremarkable. Globes are intact. IMPRESSION: No acute intracranial findings.
[2017-12-28 09:50] LABS: INR 0.97 (0.87-1.13)
[2017-12-28 10:04] LABS: Alanine Aminotransferase 11 units/L (7-56); Alanine Aminotransferase 12 units/L (7-56); Albumin 3.8 g/dL (3.9-5); BUN/Creatinine Ratio 13; Blood Urea Nitrogen 20 mg/dL (9-20); Calcium 9.2 mg/dL (8.4-10.2); Hemolysis Index 3
[2017-12-28 10:20] LABS: Bilirubin,Direct < 0.2 mg/dL (0-0.2)
--- NOTE | 2017-12-28 10:30 | Emergency Department Report ---
ED General Adult HPI - General Chief complaint: High BP Stated complaint: HIGH BP Time Seen by Provider: 12/28/17 10:29 Source: patient Mode of arrival: Stretcher Limitations: No Limitations - History of Present Illness Initial comments: 47-year-old male states he awoke from sleep abruptly. He felt very anxious. States he had a night terror like this once before. He had run out of this medicine for hypertension. Therefore he called EMS. According to the triage note he felt dizzy. However, he denied dizziness vertigo headache or any neurological changes to me. He was resting comfortably when I saw him with no complaints in no distress. He denies ever having chest pain or shortness of breath during this episode. He stated that he didn't think that he was probably panicking. He stated that the paramedics found that he had a blood pressure 200 systolic when they measured it. The patient is a poor historian. He can tell me he does have a history of a heart murmur. He thinks he had an echo in the past but there is none on record here. He does have a history of anal insufficiency. He is not in followed by a bargain table clerk. He does not have a primary care provider. According to his discharge summary here in September: 47-year-old male past medical history hypertension presents with complaint of one week of constipation and vague abdominal discomfort and slight weakness. Patient is awake alert and oriented 3 denies chest pain shortness of breath fever chills nausea or vomiting. Denies dysuria or hematuria or increased urinary frequency. Denies any smoking or drug use. Patient is fully lucid. Accompanied by friends at bedside. States he was seen at another hospital in [place] for vague abdominal discomfort week ago. Patient states he has been told in the past that he has had a kidney issue but is unable to clarify exactly what on admission patient had a CT scan of the abdomen and pelvis that showed inflamed sigmoid colon and rectum. Patient was, just on IV Levaquin and Flagyl. IV hydration was commenced because of acute on chronic kidney disease that was predominantly prerenal. Nephrology consult was obtained. Hydrochlorothiazide was held. Symptoms improved. Patient was discharged to follow primary care physician and to continue to follow up with her vaudeville actor in 3-5 days and 7 days respectively. Disposition: TO HOME OR SELFCARE Core Measure Documentation - Palliative Care Palliative Care/ Comfort Measures: Not Applicable - Core Measures Any of the following diagnoses?: none Exam - Physical Exam Narrative exam: Constitutional: Well-nourished well-developed. In no distress Head: Normocephalic atraumatic Eyes: Pupils are equal round and reactive to light Nose: No enlarged turbinates, no septal deviation. Mouth: Moist mucous membranes. Neck: Supple no thyromegaly. No bruit. No JVD Heart: Regular rate and rhythm, S1-S2 abnormal. No rubs murmurs or gallop Lungs: Clear to auscultation bilaterally no rales or rhonchi Abdomen: Soft, nontender. Bowel sound are present. Extremities: No edema no cyanosis and no clubbing. Neuro: Alert oriented Oriented x3. No focal sensory or motor deficit. Skin: No rashes no hyperemic spots Psychiatry: Euthymic. Calm. -: Sudden (awoke from sleep) Radiation: other (denies pain) Improves with: none Worsens with: none Associated Symptoms: denies other symptoms Treatments Prior to Arrival: none - Related Data Previous Rx's Medication Instructions Recorded Last Taken Type Atenolol [Tenormin] 50 mg PO QDAY #30 tablet 10/03/17 Unknown Rx AtorvaSTATin [Lipitor] 40 mg PO QHS #30 tablet 10/03/17 Unknown Rx Norvasc 10 mg PO QDAY #30 MDD htn 10/03/17 Unknown Rx Amoxicillin/Potassium Clav 1 each PO BID 14 Days tablet 10/31/17 Unknown Rx [Augmentin 875-125 Tablet] traMADol [Ultram] 50 mg PO Q6HR PRN #20 tablet 10/31/17 Unknown Rx Carvedilol 6.25 mg PO BID #60 tablet 12/28/17 Unknown Rx hydroCHLOROthiazide [Hctz] 12.5 mg PO QDAY #30 capsule 12/28/17 Unknown Rx Allergies Allergy/AdvReac Type Severity Reaction Status Date / Time Chocolate Allergy Unknown Unknown Uncoded 09/30/17 15:09 ED Review of Systems ROS: Stated complaint: HIGH BP Other details as noted in HPI Constitutional: denies: chills, fever Eyes: denies: eye pain, eye discharge, vision change ENT: denies: ear pain, throat pain Respiratory: denies: cough, shortness of breath, wheezing Cardiovascular: denies: chest pain, palpitations Endocrine: no symptoms reported Gastrointestinal: denies: abdominal pain, nausea, diarrhea Genitourinary: denies: urgency, dysuria Musculoskeletal: denies: back pain, joint swelling, arthralgia Skin: denies: rash, lesions Neurological: denies: headache, weakness, paresthesias Psychiatric: as per HPI. denies: anxiety, depression Hematological/Lymphatic: denies: easy bleeding, easy bruising ED Past Medical Hx - Past Medical History Previous Medical History?: Yes Hx Hypertension: Yes Hx Congestive Heart Failure: No Hx Diabetes: No Hx Sickle Cell Disease: No Hx Asthma: No Hx COPD: No Hx HIV: No Additional medical history: heart murmur - Surgical History Past Surgical History?: No - Social History Smoking Status: Never Smoker Substance Use Type: None - Medications Home Medications: Home Medications Medication Instructions Recorded Confirmed Last Taken Type Atenolol [Tenormin] 50 mg PO QDAY #30 tablet 10/03/17 Unknown Rx AtorvaSTATin [Lipitor] 40 mg PO QHS #30 tablet 10/03/17 Unknown Rx Norvasc 10 mg PO QDAY #30 MDD htn 10/03/17 Unknown Rx Amoxicillin/Potassium Clav 1 each PO BID 14 Days tablet 10/31/17 Unknown Rx [Augmentin 875-125 Tablet] traMADol [Ultram] 50 mg PO Q6HR PRN #20 tablet 10/31/17 Unknown Rx Carvedilol 6.25 mg PO BID #60 tablet 12/28/17 Unknown Rx hydroCHLOROthiazide [Hctz] 12.5 mg PO QDAY #30 capsule 12/28/17 Unknown Rx ED Physical Exam - General Limitations: No Limitations General appearance: alert, in no apparent distress - Head Head exam: Present: atraumatic, normocephalic - Eye Eye exam: Present: normal appearance. Absent: scleral icterus - ENT ENT exam: Present: mucous membranes moist - Neck Neck exam: Present: normal inspection. Absent: tenderness, meningismus - Respiratory Respiratory exam: Present: normal lung sounds bilaterally. Absent: respiratory distress - Cardiovascular Cardiovascular Exam: Present: regular rate, normal rhythm, diastolic murmur ( patient has 2 to 3/6 diastolic murmur). Absent: systolic murmur, rubs, gallop - GI/Abdominal GI/Abdominal exam: Present: soft, normal bowel sounds. Absent: distended, tenderness, guarding, rebound, rigid - Rectal Rectal exam: Present: deferred - Extremities Exam Extremities exam: Present: normal inspection - Back Exam Back exam: Present: normal inspection. Absent: CVA tenderness (R), CVA tenderness (L) - Neurological Exam Neurological exam: Present: alert, oriented X3, CN II-XII intact. Absent: motor sensory deficit - Psychiatric Psychiatric exam: Present: normal affect, normal mood - Skin Skin exam: Present: warm, dry, intact, normal color. Absent: rash ED Course Vital Signs 12/28/17 12/28/17 12/28/17 08:20 08:30 08:33 Pulse Rate 74 Respiratory 12 19 16 Rate Blood Pressure 156/65 O2 Sat by Pulse 98 94 99 Oximetry 12/28/17 12/28/17 12/28/17 08:46 09:00 09:16 Pulse Rate 56 L 65 59 L Respiratory 16 15 14 Rate Blood Pressure 122/55 130/48 117/55 O2 Sat by Pulse 96 94 97 Oximetry 12/28/17 12/28/17 12/28/17 09:48 10:00 10:16 Pulse Rate Respiratory Rate Blood Pressure 117/55 152/65 158/52 O2 Sat by Pulse 98 99 99 Oximetry 12/28/17 12/28/17 12/28/17 10:30 10:46 11:00 Pulse Rate 56 L Respiratory 21 Rate Blood Pressure 130/53 150/48 138/53 O2 Sat by Pulse 99 97 86 Oximetry 12/28/17 12/28/17 12/28/17 11:16 11:30 11:46 Pulse Rate 50 L 69 72 Respiratory 14 14 14 Rate Blood Pressure 150/51 139/74 137/61 O2 Sat by Pulse 99 92 97 Oximetry - Reevaluation(s) Reevaluation #1: Patient has a normal blood pressure measured times several here in the emergency department. His chest x-ray does show cardiomegaly. He has elevated proBNP. He probably has some diastolic dysfunction. His pulse oximetry is normal. I discussed the case with Dr. Ted Sr., The bargain table clerk on-call. He stated that if the patient is stable which she certainly is I could put him on carvedilol and a mild diuretic. He stated they can do an echocardiogram in the office. Patient will be referred to [facility]. 12/28/17 12:50 ED Medical Decision Making - Lab Data Result diagrams: 12/28/17 09:27 12/28/17 09:27 Laboratory Results - last 24 hr 12/28/17 12/28/17 12/28/17 09:27 09:27 09:27 WBC 4.9 RBC 4.26 Hgb 12.4 Hct 37.2 MCV 87 MCH 29 MCHC 33 RDW 15.6 H Plt Count 152 Lymph % (Auto) 30.9 Frontier % (Auto) 9.9 H Eos % (Auto) 2.2 Baso % (Auto) 0.6 Lymph # 1.5 Frontier # 0.5 Eos # 0.1 Baso # 0.0 Seg Neutrophils % 56.4 Seg Neutrophils # 2.8 PT INR Sodium 144 Potassium 3.9 Chloride 103.9 Carbon Dioxide 28 Anion Gap 16 BUN 20 Creatinine 1.5 Estimated GFR > 60 BUN/Creatinine Ratio 13 Glucose 95 Calcium 9.2 Total Bilirubin 0.30 0.30 Direct Bilirubin < 0.2 Indirect Bilirubin 0.1 AST 15 15 ALT 11 12 Alkaline Phosphatase 55 55 NT-Pro-B Natriuret Pep Total Protein 7.7 7.7 Albumin 3.8 L 3.8 L Albumin/Globulin Ratio 1.0 1.0 12/28/17 12/28/17 09:27 09:27 WBC RBC Hgb Hct MCV MCH MCHC RDW Plt Count Lymph % (Auto) Frontier % (Auto) Eos % (Auto) Baso % (Auto) Lymph # Frontier # Eos # Baso # Seg Neutrophils % Seg Neutrophils # PT 13.4 INR 0.97 Sodium Potassium Chloride Carbon Dioxide Anion Gap BUN Creatinine Estimated GFR BUN/Creatinine Ratio Glucose Calcium Total Bilirubin Direct Bilirubin Indirect Bilirubin AST ALT Alkaline Phosphatase NT-Pro-B Natriuret Pep 1068 H Total Protein Albumin Albumin/Globulin Ratio - EKG Data -: EKG Interpreted by Mi EKG shows normal: sinus rhythm Rate: bradycardia - EKG Data Interpretation: other (somewhat short TN interval. LVH likely left atrial abnormality.) - Radiology Data Radiology results: report reviewed IMPRESSION: No acute intracranial findings. Critical care attestation.: If time is entered above; I have spent that time in minutes in the direct care of this critically ill patient, excluding procedure time. ED Disposition Clinical Impression: Night terror, Diastolic murmur, Diastolic dysfunction Cardiomyopathy Qualifiers: Cardiomyopathy type: unspecified Qualified Code(s): I42.9 - Cardiomyopathy, unspecified Disposition: DC-01 TO HOME OR SELFCARE Is pt being admited?: No Does the pt Need Aspirin: No Condition: Stable Instructions: Heart Failure (ED) Additional Instructions: It is essential that you see the bargain table clerk. See your referral. An echo test is required to determine what your murmur is due to. Return to the emergency department any chest pain or breathing difficulty. Otherwise follow- up with Dr. Jean's group [facility]. Prescriptions: Carvedilol 6.25 mg PO BID #60 tablet hydroCHLOROthiazide [Hctz] 12.5 mg PO QDAY #30 capsule Referrals: PRIMARY CARE, [Primary Care Provider] - 3-5 Days Time of Disposition: 12:54
[2017-12-28 10:49] LABS: Bilirubin,Urine NEG (Negative); Blood,Urine MOD (Negative); Color,Urine Yellow (Yellow); Urobilinogen,Urine < 2.0 mg/dL (<2.0); WBC,Urine < 1.0 /HPF (0.0-6.0)
[2017-12-28 10:54] LABS: Protein,Urine >500 mg/dL (Negative)
[2017-12-28 11:14] LABS: Amphetamine Screen,Urine PRESUMPTIVE NEGATIVE; Benzodiazepines Screen,Urine PRESUMPTIVE NEGATIVE; Cannabinoid Screen,Urine PRESUMPTIVE NEGATIVE; Cocaine Screen,Urine PRESUMPTIVE NEGATIVE; Methadone Screen,Urine PRESUMPTIVE NEGATIVE; Opiate Screen,Urine PRESUMPTIVE NEGATIVE
--- NOTE | 2017-12-28 11:23 | XRay Report ---
FINAL REPORT EXAM: XR CHEST 1V AP HISTORY: hypertension TECHNIQUE: Frontal chest x-ray. PRIORS: Chest x-ray September 21, 2017. FINDINGS: Stable mild cardiomegaly There is no effusion. There is no pneumothorax. There is no consolidation. There are no suspicious osseous lesions. IMPRESSION: No acute cardiopulmonary findings.
[2017-12-28 13:06] VITALS: BP 124/66
== END 2017-12-28 13:06 | disposition home or self-care (01) ==
LOC: ED 06:21
DX: I42.9 Cardiomyopathy, unspecified (principal); I50.30 Unspecified diastolic (congestive) heart failure; I38 Endocarditis, valve unspecified; F51.4 Sleep terrors [night terrors]; I10 Essential (primary) hypertension; Z79.899 Other long term (current) drug therapy; Z91.018 Allergy to other foods
CPT/HCPCS: 36415; 70450; 71045; 80053; 80074; 80307; 81001; 83880; 85025; 85610; 93005; 93010

== ENCOUNTER 2019-04-16 17:10 | Emergency (ER) | payer SELFPAY ==
[2019-04-16 17:35] VITALS: BP 168/73
--- NOTE | 2019-04-16 18:27 | Emergency Department Report ---
Chief Complaint: Fever Stated Complaint: COLD SWEATS/FEVER - HPI History of Present Illness: pt is 49 y/o male with pmhx of htn presents to er for fever/chills, cough, nasal congestion. vs stable. - ROS Review of Systems: neg except for fever, chills, uri sxs. - Exam Vital Signs: Vital Signs 04/16/19 17:18 Temperature 100.3 F H Pulse Rate 98 H Respiratory 20 Rate Blood Pressure 168/73 O2 Sat by Pulse 96 Oximetry Physical Exam: - General Limitations: No Limitations General appearance: alert, in no apparent distress - Head Head exam: Present: atraumatic, normocephalic - Eye Eye exam: Present: normal appearance - ENT ENT exam: Present: mucous membranes moist. red throat with exudate - Neck Neck exam: Present: normal inspection - Respiratory Respiratory exam: Present: normal lung sounds bilaterally. Absent: respiratory distress, wheezes, rales - Cardiovascular Cardiovascular Exam: Present: regular rate, normal rhythm. Absent: systolic murmur, diastolic murmur, rubs, gallop - GI/Abdominal GI/Abdominal exam: Present: soft, normal bowel sounds. Absent: distended, tenderness, guarding - Rectal Rectal exam: Present: deferred - Neurological Exam Neurological exam: Present: alert, oriented X3 - Psychiatric Psychiatric exam: Present: normal affect, normal mood - Skin Skin exam: Present: warm, dry, intact, normal color. Absent: rash MSE screening note: Focused history and physical exam performed. Due to findings the following was ordered: ED Medical Decision Making - Medical Decision Making pt ti s 49 y/o male that presents to er for uri sxs. full exam done and clinical findings c/w viral URI. pt reffered to registration. pt left after mse. mse left. - Differential Diagnosis uri. fever. chills. ED Disposition for MSE Clinical Impression: URI (upper respiratory infection) Qualifiers: URI type: unspecified URI Qualified Code(s): J06.9 - Acute upper respiratory infection, unspecified Disposition: MED SCREENING EXAM-LEFT Is pt being admited?: No Does the pt Need Aspirin: No Condition: Stable Instructions: Upper Respiratory Infection (ED), Viral Syndrome (ED), Cold Symptoms (ED) Additional Instructions: Patient to follow up with primary care in 2-3 days. Patient to return to ER if condition worsens or new symptoms arise or symptoms change. Patient to increase water. Patient to rest. Patient to take Tylenol or ibuprofen when necessary for pain/fever. pt to cont all meds. pt to monitor bp at home and eat a heart healthy diet. Referrals: CHLOE STILL MD [Staff Physician] - 2-3 Days Time of Disposition: 18:31
== END 2019-04-16 19:00 | disposition left against medical advice (07) ==
LOC: ED 17:10
DX: J06.9 Acute upper respiratory infection, unspecified (principal); I10 Essential (primary) hypertension; R50.9 Fever, unspecified; Z91.018 Allergy to other foods
CPT/HCPCS: 99282